=== PATIENT | male | born 1995 | race African-American/Black ===

== ENCOUNTER 2019-10-20 15:52 | Emergency (ER) | payer SELFPAY ==
[~2019-10-20] VITALS: Ht 185 cm; Wt 77.2 kg
--- NOTE | 2019-10-20 16:09 | ED Lower Extremity ---
General Stated Complaint: FALL/R KNEE PAIN Source: patient History of Present Illness Date Seen by Provider: Oct 20, 2019 Time Seen by Provider: 16:00 Initial Comments PT ARRIVES VIA POV FROM HOME, WANTS WHEELCHAIR ON ARRIVAL PT STATES HE GOT UP AT 0300 THIS MORNING TO GO TO THE BATHROOM AND FELL, INJURING HIS RIGHT LOWER LEG STATES HE DOES NOT KNOW WHY HE FELL. C/O PAIN TO RIGHT KNEE AND RIGHT FOOT NO OTHER INJURIES DID NOT HIT HEAD AND NO LOSS OF CONSCIOUSNESS NO HIP PAIN NO PARESTHESIAS OR MOTOR DEFICITS NO PRIOR INJURY TO THIS LEG. HAS NOT TAKEN ANYTHING FOR PAIN Allergies and Home Medications Allergies Coded Allergies: No Known Drug Allergies (Unverified , 10/20/19) Home Medications Tramadol HCl 50 Mg Tablet, 50 MG PO Q4H Prescribed by: MALLORIE BANKS on 10/20/19 8955 Patient Home Medication List Home Medication List Reviewed: Yes Review of Systems Constitutional: no symptoms reported Musculoskeletal: see HPI Skin: no symptoms reported Psychiatric/Neurological: No Symptoms Reported Past Qtzvoxa-Ssplbq-Dugden Hx Past Med/Social Hx: Reviewed and Corrections made Patient Social History Recent Foreign Travel: No Contact w/Someone Who Travel: No Physical Exam Vital Signs Vital Signs - First Documented 10/20/19 15:52 Pulse 90 Resp 18 B/P (MAP) 116/82 (93) Pulse Ox 98 O2 Delivery Room Air Capillary Refill : Height, Weight, BMI Height: '" Weight: lbs. oz. kg; BMI Method: General Appearance: WD/WN, no apparent distress, other (FLAT AFFECT. DOES NOT APPEAR TO BE IN ANY DISCOMFORT OR DISTRESS. ) Hips: bilateral hip normal inspection Legs: left leg normal inspection; right leg bone tenderness, right leg limited range of motion, right leg pain, right leg soft tissue tenderness, right leg other (TENDERNESS FROM RIGHT MID FEMUR, DOWN TO RIGHT MID FOOT, AND RIGHT LATERAL MALLEOLUS. FULL ROM, PARTIAL WEIGHT BEARING. MOTOR/SENSORY/VASCULAR INTACT. NO EXTERNAL EVIDENCE OF TRAUMA. NO BRUISING OR SWELLING, NO ERYTHEMA OR ABRASIONS. ) Knees: left knee normal inspection; right knee bone tenderness, right knee pain, right knee soft tissue tenderness Ankles: left ankle normal inspection; right ankle bone tenderness, right ankle limited range of motion, right ankle pain, right ankle soft tissue tenderness Feet: left foot normal inspection; right foot bone tenderness, right foot limited range of motion, right foot pain, right foot soft tissue tenderness Neurologic/Tendon: normal sensation, normal motor functions, normal tendon functions Neurologic/Psychiatric: talent program manager II-XII nml as tested, no motor/sensory deficits, alert, normal mood/affect, oriented x 3 Skin: normal color, warm/dry; No ecchymosis NO PINPOINT TENDERNESS ANYWHERE--DIFFUSE TENDERNESS OF ENTIRE RIGHT LEG AND FOOT. NO HIP OR PELVIS TENDERNESS Procedures/Interventions Splinting and Joint Reduction : Fede wrap: Yes Immobilizers: Step Light Walker s/m/lg Ordered: Crutches Progress/Results/Core Measures Results/Orders My Orders Orders - JOCELYN,MALLORIE K DO Tibia/Fibula, Right, 2 Views (10/20/19 16:05) Knee, Right, 3 Views (10/20/19 16:05) Foot, Right, 3 View (10/20/19 16:05) Femur, Right, 2 Views (10/20/19 16:18) Pelvis (10/20/19 16:18) Fede Bandage (10/20/19 17:04) Crutches (10/20/19 17:04) Steplite (10/20/19 17:04) Vital Signs/I&O 10/20/19 15:52 Pulse 90 Resp 18 B/P (MAP) 116/82 (93) Pulse Ox 98 O2 Delivery Room Air Diagnostic Imaging Comments XRAYS--ALL PER RADIOLOGIST REPORTS AT 1700 PELVIS--NO ACUTE PROCESS RIGHT FEMUR--NO ACUTE PROCESS RIGHT KNEE--NO ACUTE PROCESS RIGHT TIB/FIB-- IMPRESSION: 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 Correlation to site of pain is recommended. If at all warranted, nonemergent MRI could be useful for confirmation. Otherwise, no acute abnormality is detected. RIGHT FOOT-- IMPRESSION: 1. Subtle cortical irregularity at the lateral aspect of the right cuboid. If pain localizes to this location, consider cross-sectional imaging. Reviewed: Reviewed by Me Departure Impression Primary Impression: Status post fall Additional Impressions: Contusion of right leg QUESTIONABLE RIGHT ANKLE INJURY Disposition: HOME, SELF-CARE Condition: Stable Departure-Patient Inst. Referrals: NO,LOCAL PHYSICIAN (PCP) Primary Care Physician LEX LEWIS MD,JOSE Lee MD Patient Instructions: Ankle Sprain (DC), Contusion (DC), Going Up and Down Curbs or Stairs With a Walker or Crutches, How to Use Crutches, Walking Boot Add. Discharge Instructions: ICE TO AREA AT 20 MINUTE INTERVALS, ELEVATE FEDE WRAP, BOOT AND CRUTCHES AT ALL TIMES FOLLOW UP WITH ORTHOPEDIC SURGEON OF CHOICE, DR. RUSSO OR DR. LEWIS, NEXT WEEK FOR FURTHER CARE. CALL WEDNESDAY MORNING TO MAKE APPOINTMENT Scripts Tramadol HCl (Ultram) 50 Mg Tablet 50 MG PO Q4H for Pain, #20 TAB Prov: MALLORIE BANKS DO 10/20/19 MALLORIE BANKS DO Oct 20, 2019 16:09
--- OUTSIDE RECORDS SUMMARY | 2019-10-20 16:21 | XMS REPORT | Continuity of Care Document ---
Author Author [facility] Organization [facility] Address [facility] [address] [place] [address] Phone Unavailable Support Name Relationship Address Phone DESTINEY PARDO Caregiver [address] [place] [phone] Unavailable WESLEY KYLE MD Caregiver [address] [place] [address] WESLEY KYLE MD Caregiver [address] [place] [address] ROSEANNE RAZO APRN Caregiver [address] [place] [address] SADIA ROGER Next Of Kin [address] [place] [address] Insurance Providers Guarantor Aureliano Roger Address [address] [place] [address] Payer Self Pay Subscriber's Name JackieAureliano Amaya Relationship 18 Self / Same As Patient Advance Directives Directive Response Recorded Date/Time Do you have an Advanced Directive? No 09/10 3:34pm Advance Directives No 02/03/18 4:01pm Living Will No 02/03/18 4:01pm Health Care Proxy No 02/03/18 4:01pm Power of Statistical Secretary for Health Care No 4:01pm Organ, Tissue, or Eye Donor No 02/03/18 4:0 1pm Do you have a signed organ donor card? No 0 09/11/99 3:34pm Chief Complaint and Reason for Visit Chief Complaint INTRACTABLE NAUSEA Reason for Visit Chest pain Problems Medical Problem Onset Date Status Chest pain Unknown Acute Hyperglycemia Unknown Acute Past Problems Medical Problem Onset Date Status Intractable nausea and vomiting Unknown Acute Nausea & vomiting Unknown Acute Nausea and vomiting Unknown Acute Nausea and vomiting Unknown Acute Medications Current Home Medications Medication Dose Units Route Directions Days Qty Instructio ns Start Date Carafate Unknown Strength Unknown Dose ORAL Four Times Daily Glipizide (Glucotrol 5 Mg*) 5 Mg Tablet 5 Mg ORAL Twice A Day 30 Tablet Metformin Hcl (Glucophage 500 Mg*) 500 Mg Tablet 500 Mg O RAL Twice A Day 60 Tablet 10/31/17 Metoclopramide Hcl (Reglan 10 Mg Tab*) 10 Mg Tablet 10 Mg ORAL Three Times Daily With Meals 42 Tablet Take 30 minutes before meals Omeprazole Magnesium 20 Mg Capsule.dr 20 Mg ORAL Past Home Medications Medication Directions Ordered Status Glipizide (Glucotrol 5 Mg*) 5 Mg Tablet, 5 Mg Oral Twice A Day Discontinued Insulin Nph Human Isophane (Humulin N) 1 00 Unit/1 Ml Vial, 10 Units Subcutaneous With Breakfast Discontinued Insulin Nph Human Isophane (Humulin N) 100 Unit/1 Ml V ial, 5 Units Subcutaneous With Supper Discontinued Lisinopril (Prinivil 5 Mg Tab*) 5 Mg Tablet, 5 Mg Oral Daily Discontinued Metoclopramide Hcl (Reglan 10 Mg Tab*) 10 Mg Tablet, 1 0 Mg Oral Every 8 Hours As Needed as needed for Nausea/Vomiting 02/01/18 Discontinued Mirtazapine (Remeron*) 15 Mg Tablet, 15 Mg Oral Bedtime 11/09/17 Discontinued No Known Medications ., Disconti nued Ondansetron (Zofran Odt) 4 Mg Tab.rapdis, 1 Tab Oral E very 6 Hours As Needed as needed for Nausea 02/01/18 Discontinued Ondansetron (Zofran Odt) 4 Mg Tab.rapdis, 4 Mg Oral Ev sneha 8 Hours As Needed Nausea 11/04/17 Discontinued Social History Social History Problem Response Recorded Date/Time Onset Date Status Smoking Status Never smoker 02/03/2018 4:01pm Not Applicable Not Ap plicable Alcohol Use none 02/03/2018 11:20am Not Applicable Not Jonathon licable Drug Use none 02/03/2018 11:20am Not Applicable Not Jonathon licable Smoking Status Start Date Stop Date Never smoker Hospital Discharge Instructions No hospital discharge instruction information available. Plan of Care Discharge Date 02/04/18 12:42pm Disposition 01 HOME, LONG-TERM,ASSISTED [facility] [place] Instructions/Education Provided Acute Nausea and Vomit ing (DC) Prescriptions See Medication Section Functional Status Query Response Date Recorded Byron Coma Scale Total 15 February 04, 2018 8:50am Patient Behavior Cooperative Fatigued February 04, 2018 8:50am Allergies, Adverse Reactions, Alerts No known allergies. Immunizations Query Response on File Recorded Date/Time Hx Diphtheria, Pertussis, Tetanus Vaccination Up To Date 02/01/18 4:59pm Hx Influenza Vaccination No 02/03/18 4:01pm Hx Pneumococcal Vaccination No 02/03/18 4:0 1pm Vital Signs Acute Vital Signs Vital Response Date/Time Temperature (Fahrenheit) 97.2 degrees F (97.6 - 99.5) 2017 5:39am Temperature Source Temporal Artery 02/04/2018 5:39am Pulse Rate (adult) 84 bpm (60 - 90) 02/04/2018 5:39am Respiratory Rate 16 bpm (12 - 24) 02/04/2018 5:39am Blood Pressure 123/85 mm Hg 02/04/2018 5:39am O2 Sat by Pulse Oximetry 100 % (90 - 100) 02/04/2018 5:39 am Oxygen Delivery Method Room Air 02/03/2018 3:05pm Pain Intensity 7 11/07/2017 5:18am Pain Location Body Site Modifier Left Right Upper Lower 11/08/2017 3:57am Pain Description Aching 11/08/2017 9:22pm Height 6 ft 3 in 02/03/2018 4:11pm Weight 132.28 lb 02/03/2018 11:06am Body Mass Index 16.0 kg/m^2 02/03/2018 4:11pm Results Laboratory Results Test Name Result Units Flags Reference Collection Date/Time Result Date/Time Comments Hemoglobin A1c 11.1 % H 4.8-6.0 11/07/2017 5:56am 018 6:26am Thyroid Stimulating Hormone (TSH) 1.44 uIU/mL 0.36-3 .74 11/08/2017 7:32am 11/08/2017 1:26pm Urine Amorphous Sediment 2+ H NEGATIVE 11/05/2017 9:0 0pm 11/05/2017 10:03pm Urine Amphetamines Screen Negative ng/mL Nprifg=1750 10:20pm 11/12/2017 1:14pm Amphetamine test includes Amphetamine an d Methamphetamine. Urine Barbiturates Screen Negative ng/mL Drzrqr=974 10:20pm 11/12/2017 1:14pm Urine Benzodiazepines Screen Negative ng/mL Cbadvy=982 11/07/2017 10:2011/12/2017 1:14pm Urine Cannabinoids Screen Negative ng/mL Cutoff=50 10/24 10:20pm 11/12/2017 1:14pm Urine Cocaine Screen Negative ng/mL Nylrcd=549 11/08/19 10:pm 11/12/2017 1:14pm Urine Opiates Screen See Final Results ng/mL Mnsltq=425 11/07/2017 10:20pm 11/12/2017 1:14pm Opiate test includes Codeine and Morphin e only. Urine Opiates Confirmation Positive A Bjztzf=379 10:20pm 11/12/2017 1:14pm Opiate test includes Codeine and Morphin e only. Urine Codeine Level Negative Xorswc=748 11/07/201 8 10:pm 11/12/2017 1:14pm Urine Morphine Level Positive A . 11/07/2017 10:20pm 11/12/2017 1:14pm Urine Morphine Confirmation 3006 ng/mL Jmprvt=656 0 11/07/2017 10:20pm 11/12/2017 1:14pm Urine Phencyclidine Screen Negative ng/mL Cutoff=25 10:2011/12/2017 1:14pm Performed at: [facility] [id number] [employer] Processor: Buster Scott MD, Phone: [phone] Biopsy Helicobacter pylori Screen NEGATIVE 01/27/2018 9:21am 01/27/2018 4:22pm Biopsy Helicobacter pylori Screen NEGATIVE 01/27/2018 9:21am 01/27/2018 4:22pm Biopsy Helicobacter pylori Screen NEGATIVE 01/27/2018 9:21am 01/27/2018 4:22pm Biopsy Helicobacter pylori Screen NEGATIVE AT 24 HR 01/27/2018 9:21am 01/29/2018 2:17pm Venous Blood pH 7.46 H 7.32-7.43 02/01/2018 5:40pm 12/2017 5:46pm Venous Blood pCO2 at Patient Temp 43 mmHg 35-48 02/01/2018 5:40pm 02/01/2018 5:46pm Venous Blood pO2 at Patient Temp 27 mmHg L 83-108 02/01/2018 5:40pm 02/01/2018 5:46pm Venous Blood HCO3 29 mmHg H 23-28 02/01/2018 5:40pm 10/0 12/2017 5:46pm Venous Blood Total Carbon Dioxide 32 mmHg H 22-26 02/01/2018 5:40pm 02/01/2018 5:46pm Venous Blood Base Excess 6.0 mEq/L H -2.0-2 02/01 5:40pm 02/01/2018 5:46pm Venous Blood O2 Saturation (Calc) 51.4 % 02/01/2018 5:40pm 02/01/2018 5:46pm Prealbumin 30 mg/dL 14-35 02/01/2018 5:35pm 02/03/2018 4:42pm Performed at: [facility] [address] [facility] [address], [place], [place] [id number] [employer]or: HAY Gutierrez MD, Phone: [phone] White Blood Count 4.1 K/uL L 4.8-10.8 02/04/2018 8:40am 03/2018 8:46am Red Blood Count 4.83 M/uL 4.70-6.10 02/04/2018 8:40am 01/24 8:46am Hemoglobin 12.9 gm/dL L 14.0-18.0 02/04/2018 8:40am 8 8:46am Hematocrit 39.1 % L 42.0-52.0 02/04/2018 8:40am 8 8:46am Mean Corpuscular Volume 80.9 fL 80.0-96.1 02/04/2018 8:4 0am 02/04/2018 8:46am Mean Corpuscular Hemoglobin 26.7 pg L 27.0-31.0 8:40am 02/04/2018 8:46am Mean Corpuscular Hemoglobin Concent 32.9 g/dL 30.0 -37.0 02/04/2018 8:40am 02/04/2018 8:46am Red Cell Distribution Width 12.6 % 11.5-14.5 8:40am 02/04/2018 8:46am Platelet Count 222 K/uL 130-400 02/04/2018 8:40am 018 8:46am Mean Platelet Volume 8.6 fL 7.4-10.4 02/04/2018 8:40am 02/04/2018 8:46am Neutrophils (%) (Auto) 59.1 % 42.2-75.2 02/04/2018 8:40 am 02/04/2018 8:46am Lymphocytes (%) (Auto) 32.0 % 20.5-51.1 02/04/2018 8:40 am 02/04/2018 8:46am Monocytes (%) (Auto) 7.9 % 0-10 02/04/2018 8:40am 1 8:46am Eosinophils (%) (Auto) 0.6 % 0-3 02/04/2018 8:40am 02/04/2018 8:46am Basophils (%) (Auto) 0.3 % 0.0-1.0 02/04/2018 8:40am 1 8:46am Neutrophils # (Auto) 2.4 K/uL 2.0-6.9 02/04/2018 8:40am 1 8:46am Lymphocytes # (Auto) 1.3 K/uL 1.2-3.4 02/04/2018 8:40am 1 8:46am Monocytes # (Auto) 0.3 K/uL 0.1-0.6 02/04/2018 8:40am 03/2018 8:46am Eosinophils # (Auto) 0.0 K/uL 0.0-0.7 02/04/2018 8:40am 1 8:46am Basophils # (Auto) 0.0 K/uL 0.0-0.2 02/04/2018 8:40am 03/2018 8:46am Random Glucose 195 mg/dL H 70-110 02/04/2018 8:40am 018 9:40am Blood Urea Nitrogen 5 mg/dL L 7-18 02/04/2018 8:40am 9:40am Creatinine 0.9 mg/dL 0.70-1.30 02/04/2018 8:40am 8 9:40am Glomerular Filtration Rate Calc 126.5 mL/min 02/04/2018 8:40am 02/04/2018 9:40am Sodium Level 140 mEq/L 136-145 02/04/2018 8:40am 8 9:40am Potassium Level 3.9 mEq/L 3.5-5.0 02/04/2018 8:40am 2017 9:40am Chloride Level 102 mEq/L 98-107 02/04/2018 8:40am 018 9:40am Carbon Dioxide Level 29.3 mEq/L 21-32 02/04/2018 8:40am 1 9:40am Calcium Level 9.3 mg/dL 8.8-10.5 02/04/2018 8:40am 018 9:40am Magnesium Level 2.0 mg/dL 1.8-2.4 02/03/2018 11:30am 02/03 12:03pm Total Protein 7.7 gm/dL 6.4-8.2 02/04/2018 8:40am 02/05/20 18 9:40am Albumin 4.3 gm/dL 3.4-5.0 02/04/2018 8:40am 02/04/2018 9:4 0am Total Bilirubin 0.60 mg/dL 0.00-1.00 02/04/2018 8:40am 01/24 9:40am Aspartate Amino Transf (AST/SGOT) 11 U/L L 15-37 02/04/2018 8:40am 02/04/2018 9:40am Alanine Aminotransferase (ALT/SGPT) 18 U/L 12-7 8 02/04/2018 8:40am 02/04/2018 9:40am Total Alkaline Phosphatase 43 U/L L 46-116 02/04/2018 8: 40am 02/04/2018 9:40am Lipase 58 U/L L 65-230 02/03/2018 11:30am 02/03/2018 12 :03pm Tricyclic Antidepressants NEGATIVE 02/03/2018 11 :45am 02/03/2018 1:11pm Phencyclidine (PCP) Screen NEGATIVE NEGATIVE 02/2018 11:45am 02/03/2018 1:11pm Urine Barbiturates Screen NEGATIVE NEGATIVE 01/24 11:45am 02/03/2018 1:11pm Urine Marijuana (THC) Screen NEGATIVE NEGATIVE 1 11:45am 02/03/2018 1:11pm Urine Opiates Screen NEGATIVE NEGATIVE 02/03/2018 11:45a m 02/03/2018 1:11pm Urine Cocaine Level NEGATIVE NEGATIVE 02/03/2018 11:45am 02/03/2018 1:11pm Urine Amphetamines Screen NEGATIVE NEGATIVE 01/24 11:45am 02/03/2018 1:11pm Urine Methamphetamines Screen NEGATIVE NEGATIVE 02/03/2018 11:45am 02/03/2018 1:11pm Urine Benzodiazepines Screen NEGATIVE NEGATIVE 1 11:45am 02/03/2018 1:11pm Urine MDMA Screen (Ecstasy) NEGATIVE NEGATIVE 11:45am 02/03/2018 1:11pm Urine Oxycodone Screen NEGATIVE NEGATIVE 018 11:45am 02/03/2018 1:11pm Urine Methadone Screen NEGATIVE NEGATIVE 018 11:45am 02/03/2018 1:11pm Urine Color YELLOW YELLOW 02/03/2018 11:40am 8 12:23pm Urine Appearance SL CLOUDY H CLEAR 02/03/2018 11:40am 12:23pm Urine Glucose (UA) NEGATIVE mg/dL NEGATIVE 02/03/2018 11:40am 02/03/2018 12:23pm Urine Bilirubin 2+ (Moderate) H NEGATIVE 02/03/2018 11:40am 02/03/2018 12:23pm Urine Ketones 3+ (80 or > mg/dl) mg/dL H NEGATIVE 018 11:40am 02/03/2018 12:23pm Urine Specific [place] >= 1.030 H 1.010-1.025 02/03 11:40am 02/03/2018 12:23pm Urine Occult Blood NEGATIVE NEGATIVE 02/03/2018 11:40am 02/03/2018 12:23pm Urine pH 6.0 5.0-8.0 02/03/2018 11:40am 02/03/2018 1 2:23pm Urine Protein TRACE mg/dL H NEGATIVE 02/03/2018 11:40am 2017 12:23pm Urine Urobilinogen 0.2 mg/dL E.U./dL 0.2-1.0 02/03/2018 11:40am 02/03/2018 12:23pm Urine Nitrate NEGATIVE NEGATIVE 02/03/2018 11:40am 02/03 12:23pm Urine Leukocyte Esterase NEGATIVE NEGATIVE 02/03 11:40am 02/03/2018 12:23pm Urine RBC 1-2 /hpf H 0 02/03/2018 11:40am 02/03/2018 12:31pm Urine WBC 1-2 /hpf 0-4 02/03/2018 11:40am 02/03/2018 12:31pm Urine Squamous Epithelial Cells 0-1 /hpf H 0-1 02/03/2018 11:40am 02/03/2018 12:31pm Urine Bacteria TRACE NEGATIVE 02/03/2018 11:40am 02/03 12:31pm Urine Mucus TRACE NEGATIVE 02/03/2018 11:40am 02/04/20 18 12:31pm Procedures Procedure Status Date Provider(s) EGD BIOPSY SINGLE/MULTIPLE Completed 01/27/18 MANDIE BURCH MD X-ray of kidneys, ureter, and bladder, single view Completed 11/05/17 REBECA GAMEZ MD Radionuclide gastric emptying study Active 11/06/17 SUZANNE AARON MD Encounters Encounter Location Arrival/Admit Date Discharge/Depart Date Attending Provider Discharged Inpatient (obs) [facility] 02/03/18 3:16pm 02/04/18 12 :42pm WESLEY KYLE MD Departed Emergency Room [facility] 02/01/18 4:58pm 02/01/18 8:17p CAROL Chase MD [facility] 01/27/18 6:10am MANDIE LOJA MD Registered Clinic [facility] 12/16/17 10:09am ROSEANNE KUNZ APRN Registered Clinic [facility] 11/18/17 10:05am ROSEANNE KUNZ APRN Discharged Inpatient [facility] 11/08/17 1:21pm 11/09/17 1:05pm SAPNA ZHU MD Recent Diagnosis Chest pain
--- OUTSIDE RECORDS SUMMARY | 2019-10-20 16:22 | XMS REPORT | Continuity of Care Document ---
Author Author [facility] Organization [facility] Address [facility] [address] [place] [id number] Phone Unavailable Support Name Relationship Address Phone RAZOROSEANNE Kodi SALDANA Caregiver [address] [place], [place] [phone] CAROL VARGAS MD Caregiver [address] [place] [id number] Unavailable SADIA ROGER Next Of Kin [address] [place] [address] Insurance Providers Guarantor Aureliano Roger Address [address] [place] [address] Payer Self Pay Subscriber's Name Aureliano Roger Relationship 18 Self / Same As Patient Advance Directives Directive Response Recorded Date/Time Do you have an Advanced Directive? No 09/10 3:34pm Advance Directives No 01/24/18 9:59am Living Will No 01/24/18 9:59am Health Care Proxy No 02/01/18 5:04pm Power of Neuroradiologist for Health Care No 9:59am Organ, Tissue, or Eye Donor No 01/24/18 9:5 9am Do you have a signed organ donor card? No 0 09/11/99 3:34pm Chief Complaint and Reason for Visit Chief Complaint ABDOMINAL PAIN Reason for Visit Nausea & vomiting Problems Medical Problem Onset Date Status Chest pain Unknown Acute Hyperglycemia Unknown Acute Past Problems Medical Problem Onset Date Status Nausea & vomiting Unknown Acute Nausea and vomiting Unknown Acute Nausea and vomiting Unknown Acute Medications Current Home Medications Medication Dose Units Route Directions Days Qty Instructio ns Start Date Glipizide (Glucotrol 5 Mg*) 5 Mg Tablet 5 Mg ORAL Twice A Day 30 Tablet Metformin Hcl (Glucophage 500 Mg*) 500 Mg Tablet 500 Mg O RAL Twice A Day 60 Tablet 10/31/17 Metoclopramide Hcl (Reglan 10 Mg Tab*) 10 Mg Tablet 10 Mg ORAL Three Times Daily With Meals 42 Tablet Take 30 minutes before meals 07/ 17/18 Metoclopramide Hcl (Reglan 10 Mg Tab*) 10 Mg Tablet 10 Mg ORAL Every 8 Hours As Needed as needed for Nausea/Vomiting 30 Tablet Take 30 min utes before meals 02/01/18 Omeprazole Magnesium 20 Mg Capsule.dr 20 Mg ORAL Ondansetron (Zofran Odt) 4 Mg Tab.rapdis 1 Tab ORAL Every 6 Hours As Needed as needed for Nausea 20 Dr[facility] Unit 02/01/18 Past Home Medications Medication Directions Ordered Status [...] Mg Tablet, 5 Mg Oral Daily Discontinued Mirtazapine (Remeron*) 15 Mg Tablet, 15 Mg Oral Bedtime 11/09/17 Discontinued No Known Medications ., Disconti nued Ondansetron (Zofran Odt) 4 Mg Tab.rapdis, 4 Mg Oral Ev sneha 8 Hours As Needed Nausea 11/04/17 Discontinued Social History Social History Problem Response Recorded Date/Time Onset Date Status Smoking Status Never smoker 01/27/2018 8:42am Not Applicable Not Ap plicable Smoking Status Start Date Stop Date Never smoker Hospital Discharge Instructions No hospital discharge instruction information available. Plan of Care Discharge Date 02/01/18 8:17pm Disposition 01 HOME, [facility]SISTED [facility] [place] Condition at Discharge Improved Instructions/Education Provided Acute Nausea and Vomit ing (ED) Prescriptions See Medication Section Referrals ROSEANNE RAZO APRN Order Date: Tomorrow Address: [address] [place] [id number] Functional Status Query Response Date Recorded Patient Behavior Appropriate February 01, 2018 4:59pm Allergies, Adverse Reactions, Alerts No known allergies. Immunizations Query Response on File Recorded Date/Time Hx Diphtheria, Pertussis, Tetanus Vaccination Up To Date 02/01/18 4:59pm Hx Influenza Vaccination No 02/01/18 4:59pm Hx Pneumococcal Vaccination No 01/24/18 9:5 9am Vital Signs Acute Vital Signs Vital Response Date/Time Temperature (Fahrenheit) 98.4 degrees F (97.6 - 99.5) 2017 4:59pm Temperature Source Oral 02/01/2018 4:59pm Pulse Rate (adult) 88 bpm (60 - 90) 02/01/2018 6:30pm Respiratory Rate 18 bpm (12 - 24) 02/01/2018 6:30pm Blood Pressure 96/57 mm Hg 02/01/2018 6:30pm O2 Sat by Pulse Oximetry 100 % (90 - 100) 02/01/2018 6:30 pm Oxygen Delivery Method Room Air 02/01/2018 6:30pm Pain Intensity 7 11/07/2017 5:18am Pain Location Body Site Modifier Left Right Upper Lower 11/08/2017 3:57am Pain Description Aching 11/08/2017 9:22pm Height 5 ft 9 in 02/01/2018 4:59pm Weight 176.37 lb 02/01/2018 4:59pm Body Mass Index 26.0 kg/m^2 02/01/2018 4:59pm Results Laboratory Results Test Name Result Units Flags Reference Collection Date/Time Result Date/Time Comments Lactic Acid Level 1.1 mmol/L 0.4-2 11/04/2017 9:50am 10/24 10:01am Magnesium Level 1.9 mg/dL 1.8-2.4 11/05/2017 7:30pm 2017 8:07pm Hemoglobin A1c 11.1 % H 4.8-6.0 11/07/2017 5:56am 018 6:26am Thyroid Stimulating Hormone (TSH) 1.44 uIU/mL 0.36-3 .74 11/08/2017 7:32am 11/08/2017 1:26pm Tricyclic Antidepressants NEGATIVE 11/07/2017 10 :20pm 11/07/2017 11:49pm Phencyclidine (PCP) Screen NEGATIVE NEGATIVE 10:20pm 11/07/2017 11:49pm Urine Barbiturates Screen NEGATIVE NEGATIVE 10/24 10:20pm 11/07/2017 11:49pm Urine Marijuana (THC) Screen NEGATIVE NEGATIVE 0 11/07/2017 10:20pm 11/07/2017 11:49pm Urine Opiates Screen POSITIVE A NEGATIVE 8 10:2011/07/2017 11:49pm OPI detected at or above the cut off of 300 ng/mL (all positive result sent out for comfirmation) Urine Cocaine Level NEGATIVE NEGATIVE 11/07/2017 10:20pm 11/07/2017 11:49pm Urine Amphetamines Screen NEGATIVE NEGATIVE 10/24 10:20pm 11/07/2017 11:49pm Urine Methamphetamines Screen NEGATIVE NEGATIVE 11/07/2017 10:20pm 11/07/2017 11:49pm Urine Benzodiazepines Screen NEGATIVE NEGATIVE 0 11/07/2017 10:20pm 11/07/2017 11:49pm Urine MDMA Screen (Ecstasy) NEGATIVE NEGATIVE 10:20pm 11/07/2017 11:49pm Urine Oxycodone Screen NEGATIVE NEGATIVE 018 10:20pm 11/07/2017 11:49pm Urine Methadone Screen NEGATIVE NEGATIVE 018 10:20pm 11/07/2017 11:49pm Urine Color YELLOW YELLOW 11/05/2017 9:00pm 11/05/2017 10:00pm Urine Appearance CLEAR CLEAR 11/05/2017 9:00pm 11/05 10:00pm Urine Glucose (UA) 2+ (500 mg/dl) mg/dL H NEGATIVE 2017 9:00pm 11/05/2017 10:00pm Urine Bilirubin 2+ (Moderate) H NEGATIVE 11/05/2017 9:00pm 11/05/2017 10:00pm Urine Ketones 3+ (80 or > mg/dl) mg/dL H NEGATIVE 018 9:0011/05/2017 10:00pm Urine Specific [place] >= 1.030 H 1.010-1.025 11/05 9:00pm 11/05/2017 10:00pm Urine Occult Blood NEGATIVE NEGATIVE 11/05/2017 9:00pm 0 11/05/2017 10:00pm Urine pH 6.0 5.0-8.0 11/05/2017 9:00pm 11/05/2017 10 :00pm Urine Protein 1+ (30 mg/dl) mg/dL H NEGATIVE 11/05/2017 9 :00pm 11/05/2017 10:00pm Urine Urobilinogen 0.2 mg/dL E.U./dL 0.2-1.0 11/05/2017 9:00pm 11/05/2017 10:00pm Urine Nitrate NEGATIVE NEGATIVE 11/05/2017 9:00pm 2017 10:00pm Urine Leukocyte Esterase NEGATIVE NEGATIVE 11/05 9:00pm 11/05/2017 10:00pm Urine RBC NEGATIVE /hpf 0 11/05/2017 9:00pm 11/05/2017 10:03pm Urine WBC NEGATIVE /hpf 0-4 11/05/2017 9:00pm 11/05/2017 10:03pm Urine Squamous Epithelial Cells 10-15 /hpf 0-1 11/05/2017 9:00pm 11/05/2017 10:03pm Urine Bacteria NEGATIVE NEGATIVE 11/05/2017 9:00pm 11/05 10:03pm Urine Mucus MANY H NEGATIVE 11/05/2017 9:00pm 8 10:03pm Urine Amorphous Sediment 2+ H NEGATIVE 11/05/2017 9:0 0pm 11/05/2017 10:03pm Urine Amphetamines Screen Negative ng/mL Rykbrk=3767 10:20pm 11/12/2017 1:14pm Amphetamine test includes Amphetamine an d Methamphetamine. Urine Barbiturates Screen Negative ng/mL Psoqyn=515 10:20pm 11/12/2017 1:14pm Urine Benzodiazepines Screen Negative ng/mL Tnzwmu=198 11/07/2017 10:20pm 11/12/2017 1:14pm Urine Cannabinoids Screen Negative ng/mL Cutoff=50 10/24 10:20pm 11/12/2017 1:14pm Urine Cocaine Screen Negative ng/mL Kmxifk=381 11/08/19 18 10:20pm 11/12/2017 1:14pm Urine Opiates Screen See Final Results ng/mL Gsxwkf=394 11/07/2017 10:20pm 11/12/2017 1:14pm Opiate test includes Codeine and Morphin e only. Urine Opiates Confirmation Positive A Ruzvuf=811 10:20pm 11/12/2017 1:14pm Opiate test includes Codeine and Morphin e only. Urine Codeine Level Negative Iiuwte=981 8 10:20pm 11/12/2017 1:14pm Urine Morphine Level Positive A . 11/07/2017 10:20pm 11/12/2017 1:14pm Urine Morphine Confirmation 3006 ng/mL Faysvx=943 0 11/07/2017 10:20pm 11/12/2017 1:14pm Urine Phencyclidine Screen Negative ng/mL Cutoff=25 10:20pm 11/12/2017 1:14pm Performed at: - [facility] [address] [id number] Embryologist: Buster Scott MD, Phone: [phone] Biopsy Helicobacter pylori Screen NEGATIVE 01/27/2018 9:21am 01/27/2018 4:22pm Biopsy Helicobacter pylori Screen NEGATIVE 01/27/2018 9:21am 01/27/2018 4:22pm Biopsy Helicobacter pylori Screen NEGATIVE 01/27/2018 9:21am 01/27/2018 4:22pm Biopsy Helicobacter pylori Screen NEGATIVE AT 24 HR 01/27/2018 9:21am 01/29/2018 2:17pm White Blood Count 7.2 K/uL 4.8-10.8 02/01/2018 5:30pm 12/2017 5:57pm Red Blood Count 4.81 M/uL 4.70-6.10 02/01/2018 5:30pm 1012/2017 5:57pm Hemoglobin 13.1 gm/dL L 14.0-18.0 02/01/2018 5:30pm 8 5:57pm Hematocrit 39.0 % L 42.0-52.0 02/01/2018 5:30pm 8 5:57pm Mean Corpuscular Volume 81.2 fL 80.0-96.1 02/01/2018 5:3 0pm 02/01/2018 5:57pm Mean Corpuscular Hemoglobin 27.2 pg 27.0-31.0 5:30pm 02/01/2018 5:57pm Mean Corpuscular Hemoglobin Concent 33.6 g/dL 30.0 -37.0 02/01/2018 5:30pm 02/01/2018 5:57pm Red Cell Distribution Width 12.8 % 11.5-14.5 5:30pm 02/01/2018 5:57pm Platelet Count 208 K/uL 130-400 02/01/2018 5:30pm 018 5:57pm Mean Platelet Volume 8.5 fL 7.4-10.4 02/01/2018 5:30pm 02/01/2018 5:57pm Neutrophils (%) (Auto) 75.5 % H 42.2-75.2 02/01/2018 5:30 pm 02/01/2018 5:57pm Lymphocytes (%) (Auto) 18.7 % L 20.5-51.1 02/01/2018 5:30 pm 02/01/2018 5:57pm Monocytes (%) (Auto) 4.9 % 0-10 02/01/2018 5:30pm 1 5:57pm Eosinophils (%) (Auto) 0.6 % 0-3 02/01/2018 5:30pm 02/01/2018 5:57pm Basophils (%) (Auto) 0.2 % 0.0-1.0 02/01/2018 5:30pm 1 5:57pm Neutrophils # (Auto) 5.5 K/uL 2.0-6.9 02/01/2018 5:30pm 1 5:57pm Lymphocytes # (Auto) 1.4 K/uL 1.2-3.4 02/01/2018 5:30pm 1 5:57pm Monocytes # (Auto) 0.4 K/uL 0.1-0.6 02/01/2018 5:30pm 12/2017 5:57pm Eosinophils # (Auto) 0.1 K/uL 0.0-0.7 02/01/2018 5:30pm 1 5:57pm Basophils # (Auto) 0.0 K/uL 0.0-0.2 02/01/2018 5:30pm 12/2017 5:57pm Random Glucose 224 mg/dL H 70-110 02/01/2018 5:30pm 018 5:59pm Blood Urea Nitrogen 12 mg/dL 7-18 02/01/2018 5:30pm 5:59pm Creatinine 0.9 mg/dL 0.70-1.30 02/01/2018 5:30pm 8 5:59pm Glomerular Filtration Rate Calc 126.5 mL/min 02/01/2018 5:30pm 02/01/2018 5:59pm Sodium Level 138 mEq/L 136-145 02/01/2018 5:30pm 8 5:59pm Potassium Level 4.5 mEq/L 3.5-5.0 02/01/2018 5:30pm 2017 5:59pm Chloride Level 98 mEq/L 98-107 02/01/2018 5:30pm 018 5:59pm Carbon Dioxide Level 28.0 mEq/L 21-32 02/01/2018 5:30pm 1 5:59pm Calcium Level 9.7 mg/dL 8.8-10.5 02/01/2018 5:30pm 018 5:59pm Total Protein 8.2 gm/dL 6.4-8.2 02/01/2018 5:30pm 02/02/20 18 6:13pm Albumin 4.5 gm/dL 3.4-5.0 02/01/2018 5:30pm 02/01/2018 6:1 3pm Total Bilirubin 0.50 mg/dL 0.00-1.00 02/01/2018 5:30pm 12/2017 6:13pm Aspartate Amino Transf (AST/SGOT) 11 U/L L 15-37 02/01/2018 5:30pm 02/01/2018 6:13pm Alanine Aminotransferase (ALT/SGPT) 15 U/L 12-7 8 02/01/2018 5:30pm 02/01/2018 6:13pm Total Alkaline Phosphatase 46 U/L 46-116 02/01/2018 5: 30pm 02/01/2018 6:13pm Lipase 54 U/L L 65-230 02/01/2018 5:30pm 02/01/2018 6:1 3pm Venous Blood pH 7.46 H 7.32-7.43 02/01/2018 [...] (Calc) 51.4 % 02/01/2018 5:40pm 02/01/2018 5:46pm Procedures Procedure Status Date Provider(s) EGD BIOPSY SINGLE/MULTIPLE Completed 01/27/18 MANDIE BURCH MD Computed tomography of abdomen and pelvis with contrast Complete d 11/04/17 LUIZA ISSA DO X-ray of kidneys, ureter, and bladder, single view Completed 11/05/17 REBECA GAMEZ MD Radionuclide gastric emptying study Active 11/06/17 SUZANNE AARON MD Encounters Encounter Location Arrival/Admit Date Discharge/Depart Date Attending Provider Departed Emergency Room [place] 02/01/18 4:58pm 02/01/18 8:17p CAROL Chase MD [facility] [place] 01/27/18 6:10am MANDIE LOJA MD Registered Clinic [place] 12/16/17 10:09am ORSEANNE KUNZ APRN Registered Clinic [place] 11/18/17 10:05am ROSEANNE KUNZ APRN Discharged Inpatient [place] 11/08/17 1:21pm 11/09/17 1:05pm SAPNA ZHU MD Departed Emergency Room [place] 11/04/17 4:38am 11/04/17 11:03 am LUIZA ISSA DO Recent Diagnosis
--- NOTE | 2019-10-20 16:47 | Diagnostic Imaging Report ---
Fall with right leg pain and inability to bear weight AP and lateral views of the right femur are obtained. FINDINGS: No acute fracture or dislocation is identified. No abnormal lytic or sclerotic focus is seen, and there is no radiopaque foreign body. IMPRESSION: No acute abnormality. Dictated by: Dictated on workstation # [id number]
--- NOTE | 2019-10-20 16:47 | Diagnostic Imaging Report ---
Indication: Fall with pelvic pain and inability to bear weight AP view of the pelvis is obtained. FINDINGS: No acute fracture or dislocation is identified. No abnormal lytic or sclerotic focus is seen, and there is no radiopaque foreign body. IMPRESSION: No acute abnormality. Dictated by: Dictated on workstation # [id number]
--- NOTE | 2019-10-20 16:50 | Diagnostic Imaging Report ---
HISTORY: Fall, pain in the right knee TECHNIQUE: 3 views of the right knee COMPARISON: None FINDINGS: No acute fracture or dislocation is seen in the right knee. Alignment appears normal. There is no joint effusion. IMPRESSION: 1. No acute osseous abnormality is seen in the right knee. Dictated by: Dictated on workstation # [id number]
--- NOTE | 2019-10-20 16:52 | Diagnostic Imaging Report ---
INDICATION: Fall with right leg pain and inability to bear weight. AP and lateral views of the right tibia-fibula are obtained. No acute fracture or malalignment is identified. There is lucency within the distal tibial shaft extending into the metaphysis. There is questionable mild thinning of cortex. There is no abnormal sclerosis. No radiopaque foreign body is seen. 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 Correlation to site of pain is recommended. If at all warranted, nonemergent MRI could be useful for confirmation. Otherwise, no acute abnormality is detected. Dictated by: Dictated on workstation # [id number]
--- NOTE | 2019-10-20 16:58 | Diagnostic Imaging Report ---
HISTORY: Fall with right foot pain. TECHNIQUE: Three views of the right foot. COMPARISON: None. FINDINGS: There is subtle cortical irregularity at the lateral aspect of the cuboid. No definite fracture line is seen. Joint spaces are preserved. No cortical erosions are seen. An os peroneum is noted. IMPRESSION: 1. Subtle cortical irregularity at the lateral aspect of the right cuboid. If pain localizes to this location, consider cross-sectional imaging. Dictated on workstation # [id number]
[2019-10-20] MEDS ORDERED: TRAM-42 PO (17:03)
[2019-10-20 17:15] VITALS: BP 118/79
--- NOTE | 2019-10-20 17:15 | NUR ---
CARLOS EDUARDOTE PLACED BY PAMELA DEMONSTRATED USING [employer]UTCH WALKING WITHOUT PROBLEM
== END 2019-10-20 17:19 | disposition home or self-care (01) ==
LOC: ER 15:53
DX: S80.11XA Contusion of right lower leg, initial encounter (principal); S99.911A Unspecified injury of right ankle, initial encounter; W19.XXXA Unspecified fall, initial encounter
CPT/HCPCS: 72170; 73552; 73562; 73590; 73630; 99283; L2114